=== PATIENT | male | born 1960 | race Caucasian/White ===

== ENCOUNTER 2018-07-25 15:25 | Emergency (ER) | payer MEDICAID ==
[~2018-07-25] VITALS: Ht 172.7 cm; Wt 61.2 kg
[~2018-07-25 15:25] MED LIST: ACET325 PO; CEPH500 PO; CIPR500 PO; HYDACE5 PO; IBUP400 PO; METR500 PO; OMEP20ER PO; ONDA4ODT MM; OXYACE5T PO; PROM25 PO; SULTRIDS PO; TRAM50 PO
[2018-07-25] MEDS ORDERED: IBUP400 PO (15:44)
[2018-07-25] MEDS ORDERED: Cleocin HCl300 MG PO (18:15)
== END 2018-07-25 18:31 | disposition home or self-care (01) ==
LOC: ER 15:25
DX: L02.416 Cutaneous abscess of left lower limb (principal); F17.200 Nicotine dependence, unspecified, uncomplicated
CPT/HCPCS: 10140; 73610; 99283-25; A9270-GY